=== PATIENT | male | born 1970 | race Caucasian/White ===

== ENCOUNTER 2021-11-30 08:02 | Day surgery (SDC) | payer BC, OTHER ==
[~2021-11-30] VITALS: Ht 177.8 cm; Wt 89.4 kg
[~2021-11-30 08:02] MED LIST: CEFAZOLIN 2 GM IVPB PREMIX 50 ML IV ONE
[2021-11-30] MEDS ORDERED: BUPIVACAINE LIPOSOME/PF 266 MG/20 ML VIAL INFIL ONE ×2 (09:09→11:30)
[2021-11-30] MEDS ORDERED: ACETAMINOPHEN I.V. 1000 MG 100 ML IV ONE (09:09)
[2021-11-30] MEDS ORDERED: KETOROLAC TROMETHAMINE 30 MG VIAL IVP ONE (09:30)
[2021-11-30] MEDS ORDERED: LR 1,000 ML IV.SOLN IV ONE (09:30)
[2021-11-30] MEDS ORDERED: ONDANSETRON HCL 4 MG/2 ML VIAL IVP ONE (09:30)
[2021-11-30] MEDS ORDERED: DEXAMETHASONE SOD PHOSPHATE 4 MG/ML VIAL IVP ONE (09:30)
[2021-11-30] MEDS ORDERED: MIDAZOLAM HCL 5 MG/5 ML VIAL IVP ONE (09:30)
[2021-11-30] MEDS ORDERED: PROPOFOL 200MG/ 20ML VIAL (DIPRIVAN) IV ONE (09:30)
[2021-11-30] MEDS ORDERED: DESFLURANE 15 MIN GAS INH ONE (09:30)
[2021-11-30] MEDS ORDERED: fentaNYL CITRATE 250 MCG/5 ML AMP IV ONE (09:30)
[2021-11-30] MEDS ORDERED: MEPERIDINE 100 MG INJ. 100 MG/ML VIAL IM ONE (09:30)
[2021-11-30] MEDS ORDERED: LIDOCAINE 2%, 20 ML MDV INJ ONE (09:30)
[2021-11-30] MEDS ORDERED: ROCURONIUM BROMIDE 10 MG/ML (ZEMURON) IV ONE (09:30)
[2021-11-30] MEDS ORDERED: SUGAMMADEX SODIUM 200 MG/2 ML VIAL IV ONE (09:30)
[2021-11-30] MEDS ORDERED: BUPIVACAINE /PF 0.25% 30 ML VIAL INJ ONE (09:30)
[2021-11-30] MEDS ORDERED: MEPERIDINE HCL/PF 25 MG/ML DISP.SYRIN IVP PRN (10:30)
[2021-11-30] MEDS ORDERED: LABETALOL 100 MG/ 20ML VIAL IVP PRN (10:30)
[2021-11-30] MEDS ORDERED: HYDROmorphone 1 MG/ML INJ. CARTRIDGE IVP PRN ×2 (10:30)
[2021-11-30] MEDS ORDERED: hydrALAZINE HCL 20 MG/ML VIAL IVP PRN (10:30)
[2021-11-30] MEDS ORDERED: METOCLOPRAMIDE HCL 10 MG/2 ML VIAL IVP PRN (10:30)
[2021-11-30] MEDS ORDERED: MIDAZOLAM HCL 2 MG/2 ML VIAL (VERSED) IVP PRN (10:30)
[2021-11-30] MEDS ORDERED: LR 1,000 ML IV SCH (10:30)
[2021-11-30 14:20] VITALS: BP_SYST 126
== END 2021-11-30 14:12 | disposition home or self-care (01) ==
LOC: SDS 08:02 → SMU 08:04 → SDS 14:12
PROVIDERS: ATTEND Surgery
DX: K40.90 Unilateral inguinal hernia, without obstruction or gangrene, not specified as recurrent (principal); I10 Essential (primary) hypertension; E78.00 Pure hypercholesterolemia, unspecified; K21.9 Gastro-esophageal reflux disease without esophagitis; Z88.0 Allergy status to penicillin; G47.33 Obstructive sleep apnea (adult) (pediatric); Z99.89 Dependence on other enabling machines and devices; Z79.899 Other long term (current) drug therapy
CPT/HCPCS: 36415 ×2; 49650; 87426; U0003; J3490 ×2; J0690; J1100; J1885; J2001; J2250; J2405; J2704; J3010; J2175; J7120; J0131; C9290; S2900; C1727; C1781; E0190